=== PATIENT | female | born 1990 | race Caucasian/White ===

== ENCOUNTER 2024-05-31 08:25 | Emergency (ER) | payer OTHER, SELFPAY ==
[2024-05-31 08:48] VITALS: BP 115/81; PULSE 81; RESP 18; TEMP 36.8; O2SAT 97
[2024-05-31 09:07] LABS: EDCOVIDSCREEN Negative (Negative); EDINFLUASCREEN Negative (Negative); EDINFLUBSCREEN Negative (Negative)
--- NOTE | 2024-06-05 08:18 | ED.URI ---
HPI - URI/Sore Throat General Chief Complaint: Upper Respiratory Infection Stated Complaint: FEVER/CHILLS/BODY ACHES/COUGH/DIARRHA Time Seen by Provider: 05/31/24 09:00 Source: patient Mode of arrival: ambulatory Limitations: no limitations History of Present Illness HPI Narrative: 33 yo F presents with c/o cough, congestion, fatigue, bodyaches, fever, diarrhea for 4 days. Taking OTC medications to treat symptoms. Denies N/V. No CP or SOB. No known sick contacts. All systems reviewed and negative except as noted above. Related Data Allergies Allergy/AdvReac Type Severity Reaction Status Date / Time No Known Allergies Allergy Unknown Unverified 05/23/15 01:03 Review of Systems Review of Systems: CONSTITUTIONAL: reports fatigue, fever, chills, or sweats. EYES: Denies visual changes, redness, or discharge. ENT: Reports rhinorrhea, congestion, sore throat, or otalgia. CARDIOVASCULAR: Denies chest pain, palpitations, or edema. RESPIRATORY: reports cough. Denies dyspnea. GASTROINTESTINAL: Denies abdominal pain, nausea, vomiting. Reports diarrhea. GENITOURINARY: Denies dysuria or hematuria. SKIN: Denies rash or itching. MUSCULOSKELETAL: Denies back pain, joint pain, or myalgia. NEUROLOGIC: Denies headache, numbness, or weakness. PSYCHIATRIC: Denies anxiety or depression. All other systems reviewed are negative, except as documented in HPI. [facility] Family History Family History (Updated 06/23/16 @ 10:05 by DOCTOR UNKNOWN) Grandparent Hypertension Other Family history of mental disorder Family history of osteoarthritis Social History Social History Smoking status: Never smoker Alcohol intake: current Comments At time of signature, agree with nursing past medical, surgical, social and family history. There is no relevant family history pertinent to the presenting complaint. Exam Narrative: GENERAL: This is a well-nourished, well-developed patient, in no apparent distress. HEAD: normocephalic, atraumatic. EYES: PERRL. Sclera clear/white. Vision is grossly intact. EARS: External ears normal, auditory canals clear and without drainage, TMs normal without perforation. Hearing grossly intact. NOSE: External nose normal with mild congestion with clear nasal drainage. THROAT: Mucous membranes moist, mild erythema with postnasal drainage. No swelling or exudates. NECK: Neck supple, non-tender without lymphadenopathy, masses or thyromegaly. CARDIOVASCULAR: Regular rate and rhythm without murmurs, gallops, or rubs. RESPIRATORY: Clear to auscultation. Breath sounds equal bilaterally. No wheezes, rales, or rhonchi. SKIN: warm, Dry, intact with no suspicious lesions or rash, good texture and turgor. NEURO: awake, alert, and oriented to person, place and time. There were no obvious focal neurologic abnormalities. EXTREMITIES: No joint tenderness, effusion, or edema noted Course Course Level of Care: Express Care Visit Vital Signs Vital signs: Vital Signs Temperature 36.8 C 05/31/24 08:48 Pulse Rate 81 05/31/24 08:48 Respiratory Rate 18 05/31/24 08:48 Blood Pressure 115/81 05/31/24 08:48 Pulse Oximetry 97 05/31/24 08:48 Oxygen Delivery Room Air 05/31/24 08:48 Temperature 36.8 C 05/31/24 08:48 Pulse Rate 81 05/31/24 08:48 Respiratory Rate 18 05/31/24 08:48 Blood Pressure 115/81 05/31/24 08:48 Pulse Oximetry 97 05/31/24 08:48 Oxygen Delivery Room Air 05/31/24 08:48 Reviewed MDM - URI/Sore Throat MDM Narrative Medical decision making narrative: negative COVID and influenza test. Lungs clear to auscultation. Patient is well-appearing, no respiratory distress. Afebrile at [facility]. recommend she continue [id number] medications to treat viral symptoms. Patient is aware of diagnosis, understands and agrees to treatment plan. Anticipatory guidance given. Patient agrees to follow-up as directed and is aware of reasons to seek care at the emergency department. Portions of this record may have been created with voice recognition software Differential Diagnosis Differential diagnosis: Likely upper respiratory infection, sinusitis, viral infection and influenza Lab Data Labs: Lab Results 05/31/24 Range/Units 09:04 POC Influenza A Ag Negative (Negative) POC Influenza B Ag Negative (Negative) POC SARS CoV-2 Ag Negative (Negative) Discharge Plan Discharge Clinical Impression: Viral upper respiratory tract infection with cough Patient Disposition: Home, Self-Care Condition: Stable Instructions: Upper Respiratory Infection (ED) Additional Instructions: Your COVID and influenza test were negative today. Your symptoms are viral and may last 10-14 days. Continue taking [id number] Mucinex as directed on packaging. Take Tylenol every 6-8 hours as needed for pain and fever. Drink at least 64 oz of water a day. Place cool mist humidifier in bedroom where you sleep. Follow-up with your primary care physician if symptoms are not improving. Patient Language: Upper Sorbian Prescriptions: New benzonatate 200 mg capsule 200 mg PO TID PRN (Reason: cough) Qty: 20 0RF Follow-up/Referrals: Jen,DEBRA Boothe [Primary Care Provider] - Time of Disposition: 09:01
== END 2024-05-31 09:11 | disposition home or self-care (01) ==
PROVIDERS: Emergency Provider Nurse Practitioner Family; PCP Physician Assistant
DX: J06.9 Acute upper respiratory infection, unspecified (principal); R05.9 Cough, unspecified; Z20.822 Contact with and (suspected) exposure to COVID-19
CPT/HCPCS: 87426; 87804; 99213; G0463